=== PATIENT | male | born 1940 ===

== ENCOUNTER 2021-08-13 00:22 | Outpatient (REF) | payer SELFPAY | END 2021-08-13 00:23 | disposition home or self-care (01) | LOC: HO.MMNH2L 00:22 | PROVIDERS: Visit Provider Family Medicine | DX: Z13.89 Encounter for screening for other disorder (principal) ==

== ENCOUNTER 2021-08-20 00:52 | Outpatient (REF) | payer SELFPAY | END 2021-08-20 00:53 | disposition home or self-care (01) | LOC: HO.MMNH2L 00:52 | PROVIDERS: Visit Provider Family Medicine | DX: Z13.89 Encounter for screening for other disorder (principal) ==